=== PATIENT | male | born 2000 | race Hispanic/Latino ===

== ENCOUNTER 2021-08-31 19:09 | Emergency (ER) | payer OTHER ==
[2021-08-31] MEDS ORDERED: Naproxen 500 MG TAB ONE (19:54)
== END 2021-08-31 21:16 ==
LOC: ERS 19:09
DX: S82.432A Displaced oblique fracture of shaft of left fibula, initial encounter for closed fracture (principal); W06.XXXA Fall from bed, initial encounter